=== PATIENT | male | born 1980 | race Caucasian/White ===

== ENCOUNTER → 2016-09-25 | Outpatient (CLI) | payer BC ==
[~2016-09-25] MED LIST: GADAVIST IV PRN; PANT40TA PO; RANI150T3 PO; SITA50TA3 PO
--- NOTE | 2016-09-25 09:29 | DIAGNOSTIC IMAGING REPORT ---
BRAIN COMBO FOR IAC CLINICAL HISTORY: Headache. Visual disturbance. Dizziness. COMPARISON STUDY: No previous studies for comparison. TECHNIQUE: Utilizing a 0.7 Keli open magnet, multiplanar, multi echo imaging of the brain was performed pre and postcontrast administration with thin imaging through the internal auditory canals. Injection of 13 cc of Gadavist IV was uneventful. FINDINGS: This exam is mildly compromised by artifact although is diagnostic. There are no areas restricted diffusion. No acute intracranial hemorrhage, midline shift or mass effect is present. Brain volume is normal. Ventricular system is normal. The basilar cisterns are patent. There are no extra-axial collections. Flow-voids for the major intracranial vessels are present. There are no intracranial masses or pathologic enhancement. No abnormalities are identified within the internal auditory canals. The semicircular canals are intact. There is no fluid within the mastoid air cells. There is no mass within the internal auditory canals or cerebellopontine angles. Calvarial signal is maintained. Orbits and sinuses are unremarkable. There are a few equivocal punctate foci of signal abnormality which are of doubtful significance. IMPRESSION: 1. No acute intracranial findings. 2. No abnormalities within the internal auditory canals. 3. No intracranial masses or areas of pathologic enhancement. Electronically signed by: Klever Aguilar M.D. 09/25/2016 9:27 AM Dictated Date/Time: 09/25/2016 9:20 AM
== END | disposition home or self-care (01) ==
LOC: C.OPENMRI 07:52
PROVIDERS: ATTEND Hospitalist
DX: R51 Headache (principal); H53.9 Unspecified visual disturbance

== ENCOUNTER → 2017-03-12 | Outpatient (CLI) | payer BC ==
[~2017-03-12] MED LIST changes: -GADAVIST IV PRN
[2017-03-12 09:58] LABS: BLOOD UREA NITROGEN 15 mg/dl (7-18); BUN/CREATININE RATIO 13.5 (10-20); CALCIUM 8.8 mg/dl (8.5-10.1); CARBON DIOXIDE 25 mmol/L (21-32); CHLORIDE 108 mmol/L (98-107); CHOLESTEROL 149 mg/dl (0-200); GLUCOSE 100 mg/dl (70-99); POTASSIUM 3.7 mmol/L (3.5-5.1); SODIUM 141 mmol/L (136-145); TRIGLYCERIDES 124 mg/dl (0-150); VERY LOW DENSITY LIPOPROT CALC 25 mg/dl
[2017-03-12 10:03] LABS: CHOLESTEROL/HDL RATIO 4.7; ESTIMATED AVERAGE GLUCOSE 123 mg/dl; HA1C FLAG Normal (Normal); HDL CHOLESTEROL 32 mg/dl; LDL CHOLESTEROL CALCULATED 92 mg/dl
== END | disposition home or self-care (01) ==
LOC: C.LAB1850 08:03
PROVIDERS: ATTEND Nurse Practitioner Family
DX: E88.81 Metabolic syndrome and other insulin resistance (principal); K21.9 Gastro-esophageal reflux disease without esophagitis

== ENCOUNTER → 2017-10-15 | Outpatient (CLI) | payer BC ==
[2017-10-15 10:09] LABS: ALBUMIN 3.9 gm/dl (3.4-5.0); ALT/SGPT 44 U/L (12-78); BLOOD UREA NITROGEN 16 mg/dl (7-18); CALCIUM 9.1 mg/dl (8.5-10.1); CARBON DIOXIDE 27 mmol/L (21-32); CHOLESTEROL 147 mg/dl (0-200); CREATININE 1.08 mg/dl (0.60-1.40); GLUCOSE 120 mg/dl (70-99); POTASSIUM 4.2 mmol/L (3.5-5.1); SODIUM 137 mmol/L (136-145)
[2017-10-15 10:12] LABS: ALKALINE PHOSPHATASE 85 U/L (45-117); AST/SGOT 20 U/L (15-37); LDL CHOLESTEROL CALCULATED 90 mg/dl; TOTAL PROTEIN 7.9 gm/dl (6.4-8.2)
[2017-10-15 10:18] LABS: HEMOGLOBIN A1C 6.2 % (4.5-5.6)
== END | disposition home or self-care (01) ==
LOC: C.LAB1850 08:29
PROVIDERS: ATTEND Nurse Practitioner Family
DX: E88.81 Metabolic syndrome and other insulin resistance (principal); K21.9 Gastro-esophageal reflux disease without esophagitis